=== PATIENT | female | born 1990 | race American Indian/Alaskan Native ===

== ENCOUNTER 2017-02-17 15:46 | Emergency (ER) | payer OTHER ==
[2017-02-17 16:15] VITALS: BP 109/72
--- NOTE | 2017-02-17 16:40 | Emergency Department Report ---
ED Back Pain/Injury HPI - General Chief Complaint: Back Pain/Injury Stated Complaint: BACK PAIN Time Seen by Provider: 02/17/17 16:39 Source: patient, family Limitations: No Limitations - History of Present Illness Initial Comments: Patient here complaining of lower back pain since April. She says she has been to a chiropractor and pain center. She said x-ray showed that she has L4 and L5 disc disease. She said that the doctor said it's rubbing together. She says she takes a lot of Motrin which helps the pain but only temporarily. She says she was told to come to the emergency room for MRI. Patient denies any urinary burning frequency or urgency. Denies any nausea or vomiting. She reports that the pain is radiating into both her buttocks. Pain is worse with movement better with rest. Denies any abdominal pain .denies any fever or chills. Denies any previous injury to back. MD Complaint: back pain Onset/Timin -: month(s) Similar Symptoms Previously: Yes Place: home Radiation: buttocks Severity: severe Severity scale (0 -10): 8 Quality: sharp, aching Consistency: intermittent Improves With: movement, walking Worsens With: immobilization Context: unknown Associated Symptoms: denies: confusion, weakness, chest pain, numbness, cough, difficulty urinating, diaphoresis, incontinence, fever/chills, constipation, headaches, abdominal pain, loss of appetite, malaise, nausea/vomiting, rash, seizure, shortness of breath, syncope Treatments Prior to Arrival: NSAIDS - Related Data Previous Rx's Medication Instructions Recorded Last Taken Type Naproxen [Naprosyn] 500 mg PO BID PRN 5 Days #10 tablet 02/17/17 Unknown Rx Nitrofurantoin Monohyd/M-Cryst 100 mg PO Q12H 7 Days #14 capsule 02/17/17 Unknown Rx [Macrobid 100 mg Capsule] Allergies Allergy/AdvReac Type Severity Reaction Status Date / Time No Known Allergies Allergy Unverified 02/17/17 16:15 ED Review of Systems ROS: Stated complaint: BACK PAIN Other details as noted in HPI Comment: All other systems reviewed and negative Constitutional: no symptoms reported Respiratory: no symptoms reported Cardiovascular: denies: chest pain, palpitations, edema, syncope Gastrointestinal: denies: abdominal pain, nausea, vomiting, diarrhea, constipation, hematemesis Genitourinary: denies: urgency, dysuria, frequency, hematuria, discharge, abnormal menses, dyspareunia Musculoskeletal: back pain (radiation to buttocks). denies: joint swelling, arthralgia, myalgia Skin: denies: rash Neurological: denies: headache, weakness, numbness, paresthesias, confusion, abnormal gait, vertigo ED Past Medical Hx - Past Medical History Previous Medical History?: Yes Additional medical history: Chronic back pain - Surgical History Past Surgical History?: No - Family History Family history: no significant - Social History Smoking Status: Never Smoker Substance Use Type: None - Medications Home Medications: Home Medications Medication Instructions Recorded Confirmed Last Taken Type Naproxen [Naprosyn] 500 mg PO BID PRN 5 Days #10 tablet 02/17/17 Unknown Rx Nitrofurantoin Monohyd/M-Cryst 100 mg PO Q12H 7 Days #14 capsule 02/17/17 Unknown Rx [Macrobid 100 mg Capsule] ED Physical Exam - General Limitations: No Limitations General appearance: alert, in no apparent distress - Head Head exam: Present: atraumatic, normocephalic, normal inspection - Eye Eye exam: Present: normal appearance, PERRL, EOMI Pupils: Present: normal accommodation - ENT ENT exam: Present: normal exam, normal orophraynx, mucous membranes moist - Neck Neck exam: Present: normal inspection, full ROM, other (No C-spine tenderness). Absent: tenderness, meningismus, lymphadenopathy, thyromegaly - Respiratory Respiratory exam: Present: normal lung sounds bilaterally. Absent: respiratory distress, chest wall tenderness - Cardiovascular Cardiovascular Exam: Present: regular rate, normal rhythm, normal heart sounds. Absent: systolic murmur, diastolic murmur - GI/Abdominal GI/Abdominal exam: Present: soft, normal bowel sounds. Absent: distended, tenderness, guarding, rebound, rigid - Extremities Exam Extremities exam: Present: normal inspection, full ROM, normal capillary refill , other (patient able to ambulate without any difficulties. No clubbing, cyanosis or edema to extremities. +2 pulses to all extremities. No neurovascular compromise. Patient with +5/5 trend to all extremities. Joint deformities, effusion, laceration, abrasion or ecchymotic area. She has no restriction in movement to her upper or lower extremities. No signs of tendon or ligament injury.). Absent: tenderness, pedal edema, joint swelling, calf tenderness - Back Exam Back exam: Present: normal inspection, full ROM. Absent: tenderness, CVA tenderness (R), CVA tenderness (L), muscle spasm, paraspinal tenderness, vertebral tenderness, rash noted - Expanded Back Exam Expanded Back exam: Absent: saddle anesthesia Back exam: Negative Straight Leg Raising: Left, Right - Neurological Exam Neurological exam: Present: alert, oriented X3, normal gait, reflexes normal. Absent: motor sensory deficit - Expanded Neurological Exam Expanded Neurological exam: Absent: innattentive, memory loss-remote event, memory loss- recent event, ataxia, receptive aphasia, expressive aphasia, total aphasia, tremor, protecting the airway Patient oriented to: Present: person, place, time Speech: Present: fluid speech Cranial nerves: EOM's Intact: Normal, Gag Reflex: Normal, Tongue Deviation: Normal, Nystagmus: Normal, Facial Sensation: Normal Cerebellar function: Romberg: Normal Upper motor neuron: Pronator Drift: Normal, Sensory Extinction: Normal Sensory exam: Upper Extremity Light Touch: Normal, Upper Extremity Pin Prick: Normal, Upper Extremity Temperature: Normal, UE 2 Point Discrimination: Normal, Lower Extremity Light Touch: Normal, Lower Extremity Pin Prick: Normal, Lower Extremity Temperature: Normal, LE 2 Point Discrimination: Normal Motor strength exam: RUE: 5, LUE: 5, RLE: 5, LLE: 5 DTR: bicep (R): 2+, bicep (L): 2+, tricep (R): 2+, tricep (L): 2+, knee (R): 2+ , knee (L): 2+, ankle (R): 2+, ankle (L): 2+ Best Eye Response ([place]): (4) open spontaneously Best Motor Response ([place]): (6) obeys commands Best Verbal Response (Luciano): (5) oriented Luciano Total: 15 - Psychiatric Psychiatric exam: Present: normal affect, normal mood - Skin Skin exam: Present: warm, dry, intact, normal color. Absent: rash ED Course Vital Signs 02/17/17 16:10 Temperature 98.7 F Pulse Rate 87 Respiratory 18 Rate Blood Pressure 109/72 O2 Sat by Pulse 100 Oximetry - Reevaluation(s) Reevaluation #1: 02/17/17 17:10 Age and given Decadron 10 mg I am, hydrocodone 5/325 2 tablets by mouth and Flexeril 10 mg by mouth in emergency room for back pain which she says she relieves her back pain. I also discussed patient did a urinalysis was positive for a urinary tract infection and urine culture was sent. ED Medical Decision Making - Lab Data Lab Results 02/17/17 Range/Units 16:47 Urine Color Yellow (Yellow) Urine Turbidity Clear (Clear) Urine pH 6.0 (5.0-7.0) Ur Specific [place] 1.017 (1.003-1.030) Urine Protein <15 mg/dl (Negative) mg/dL Urine Glucose (UA) Neg (Negative) mg/dL Urine Ketones Tr (Negative) mg/dL Urine Blood Neg (Negative) Urine Nitrite Neg (Negative) Urine Bilirubin Neg (Negative) Urine Urobilinogen 4.0 (<2.0) mg/dL Ur Leukocyte Esterase Tr (Negative) Urine WBC (Auto) 8.0 H (0.0-6.0) /HPF Urine RBC (Auto) 2.0 (0.0-6.0) /HPF U Epithel Cells (Auto) 1.0 (0-13.0) /HPF Urine Mucus Few /HPF Urine HCG, Qual Negative (Negative) Urine culture sent - Medical Decision Making Ed Course: Pt here complaining of back pain that she has been experiencing and April 2016. Patient says she went to chiropractor and he did x-ray and told her that she has L4 and L5 with bones rubbing together and she lost condition and in her this pain is. She reported that they told her to come to the emergency room so she can have an MRI. Physical findings with normal back exam , neurological exam is intact and no vertebral spine tenderness. Patient able to ambulate without any difficulties. Urinalysis revealed patient with acute cystitis, and test was negative. I discussed with patient diagnosis and treatment plan along with follow-up plan. Older that she has to follow-up with orthopedic doctor for her chronic back pain that is radiating down to her buttocks and they will need to evaluate her and order MRI if needed. Given [place] 5/325 2 tablets emergency room, Flexeril 10 mg by mouth and Toradol 30 mg IM and she voiced relief of her back pain. Patient discharged home with prescription for Macrobid and naproxen and to follow-up with orthopedic doctor. Discharged home from ED with her family in stable condition. Critical care attestation.: If time is entered above; I have spent that time in minutes in the direct care of this critically ill patient, excluding procedure time. ED Disposition Clinical Impression: Acute cystitis without hematuria Back pain Qualifiers: Back pain location: low back pain Chronicity: unspecified Back pain laterality : bilateral Sciatica presence: with sciatica Sciatica laterality: bilateral sciatica Qualified Code(s): M54.42 - Lumbago with sciatica, left side Disposition: TO HOME OR SELFCARE Is pt being admited?: No Does the pt Need Aspirin: No Condition: Stable Instructions: Urinary Tract Infection in Women (ED), Lumbar Radiculopathy (ED) Additional Instructions: Follow-up with Dr. Muller orthopedic doctor as instructed You have a urinary tract infection, please take antibiotic as prescribed You can take naproxen to help your back pain. increased her fluid intake Follow-up with your primary care physician on Monday status post urinary tract infection and if he does not have a primary care physician please follow up with [facility] Prescriptions: Naproxen [Naprosyn] 500 mg PO BID PRN 5 Days #10 tablet PRN Reason: Pain, Moderate (4-6) Nitrofurantoin Monohyd/M-Cryst [Macrobid 100 mg Capsule] 100 mg PO Q12H 7 Days # 14 capsule Referrals: DHAVAL HUSSEIN MD [Primary Care Provider] - 02/20/17 BRIE MULLER MD [Staff Physician] - 3-5 Days [facility] [Outside] - 02/20/17 Forms: Work/School Release Form(ED)
[2017-02-17] MEDS ORDERED: DECADRON IM STA (16:41)
[2017-02-17] MEDS ORDERED: NORCO 5/325 PO ONE (16:42)
[2017-02-17] MEDS ORDERED: TORADOL IM ONE (16:42)
[2017-02-17 17:02] LABS: Bilirubin,Urine NEG (Negative); Blood,Urine NEG (Negative); Ketones,Urine TR mg/dL (Negative); Leukocyte Esterase,Urine TR (Negative); Mucus,Urine FEW /HPF; Nitrite,Urine NEG (Negative); Protein,Urine <15 mg/dL mg/dL (Negative)
== END 2017-02-17 18:24 | disposition home or self-care (01) ==
LOC: ED 15:46
DX: N30.00 Acute cystitis without hematuria (principal); M54.42 Lumbago with sciatica, left side
CPT/HCPCS: 81001; 81025; 87086; 96372; 99283; J1100; J1885